=== PATIENT | male | born 1985 | race African-American/Black ===

== ENCOUNTER 2017-09-10 05:55 | Emergency (ER) | payer SELFPAY ==
[2017-09-10 06:02] VITALS: BP 133/87; PULSE 75; TEMP 98.1; BMI 18.4
--- NOTE | 2017-09-10 06:35 | PDOC ---
History of Present Illness - General Chief Complaint: Cold Symptoms Stated Complaint: COUGH & BODY ACHES Time Seen by Provider: 09/10/17 06:12 - History of Present Illness Initial Comments: This 32-year-old man presents with a 2-3 week history of runny nose/sore throat/ subjective fever and chills, followed by cough productive of green sputum. Patient denies shortness of breath or wheezing. Over the last 24 hours he has had some nausea and scant vomiting. He also states that he has had some loose stools during the last 48 hours. Patient states that "everyone" at home has similar infectious symptoms. No one has been diagnosed with influenza or has had any antiviral treatments. Patient denies using any [id number] medications for his symptoms. No recent travel. No significant past medical history and patient has not seen a doctor in several years although he has 1 in [facility]. Patient admits to tobacco smoking for the last year although he has stopped during the current illness ( for approximately 2 weeks) Past History - Past Medical History Allergies/Adverse Reactions: Allergies Allergy/AdvReac Type Severity Reaction Status Date / Time No Known Allergies Allergy Unverified 09/10/17 06:00 Home Medications: Ambulatory Orders Amoxicillin - [Amoxicillin 500mg Capsule -] 500 mg PO TID #21 capsule 09/10/17 COPD: No - Suicide/Smoking/Psychosocial Hx Smoking History: Former smoker Have you smoked in the past 12 months: Yes Information on smoking cessation initiated: Yes 'Breaking Loose' booklet given: 09/10/17 Review of Systems - Review of Systems Able to Perform ROS?: Yes Comments:: 12 point review of systems is negative except for what is noted in the history of present illness *Physical Exam - Vital Signs Last Vital Signs Temp Pulse Resp BP Pulse Ox 98.1 F 75 16 133/87 99 09/10/17 06:00 09/10/17 06:00 09/10/17 06:00 09/10/17 06:00 09/10/17 06:00 - Physical Exam Comments: GENERAL: Adult male, alert and oriented 3, in no respiratory distress HEAD: Normal with no signs of trauma. EYES: PERRLA, EOMI, sclera anicteric, conjunctiva clear. ENT: Ears normal, nares patent, oropharynx mildly erythematous without exudates. Moist mucous membranes. No facial tenderness NECK: Normal range of motion, supple without lymphadenopathy, JVD, or masses. LUNGS: Breath sounds equal, clear to auscultation bilaterally. No wheezes, and no crackles. HEART:Regular rate and rhythm, normal S1 and S2 without murmur, rub or gallop. ABDOMEN:.normal bowel sounds No guarding,tenderness or rebound.No masses No distention. EXTREMITIES: Normal range of motion, no edema. No clubbing or cyanosis. No erythema, or tenderness. NEUROLOGICAL: Cranial nerves II through XII grossly intact. Normal speech. No focal neurological deficits. MUSCULOSKELETAL: Back non-tender to palpation, no CVA tenderness SKIN: Warm, Dry, normal turgor, no rashes or lesions noted. Progress Note - Progress Note Progress Note: This otherwise healthy 32-year-old man, former smoker (quit 2 weeks ago) presents with a few week history of symptoms consistent with viral syndrome but cough productive of green sputum over this time. He has not measured fever or had wheezing/shortness of breath during any time in the current illness. Although he has had some nausea/vomiting/diarrhea over the last few days, it appears that most of his symptoms are improving except for his productive cough. Exam as noted. Clinical presentation most consistent with viral syndrome and secondary acute bacterial bronchitis in a smoker. No clear history of antecedent sinusitis. Since the productive cough has been persistent for a few weeks, antibiotic therapy warranted. Patient was started on amoxicillin 500 mg and a prescription for amoxicillin 500 mg 3 times a day for one week history of sent was pharmacy. Meanwhile, the patient should make sure that he drinks plenty of fluids, avoid complex solid foods until his gastrointestinal issues clear and consider using a vaporizer in his home or bedroom at night. He was strongly advised that the patient follow-up with his general doctor within the next week. The patient expressed interest in having a full workup including laboratory evaluation and this is best done in the outpatient setting. He should return to ER if he experiences respiratory distress/wheezing /shortness of breath or persistent high fever *DC/Admit/Observation/Transfer Diagnosis at time of Disposition: Acute bronchitis Qualifiers: Bronchitis organism: unspecified organism Qualified Code(s): J20.9 - Acute bronchitis, unspecified - Discharge Dispostion Disposition: HOME Condition at time of disposition: Stable - Prescriptions Prescriptions: Amoxicillin - [Amoxicillin 500mg Capsule -] 500 mg PO TID #21 capsule - Referrals - Patient Instructions Printed Discharge Instructions: Acute Bronchitis Additional Instructions: Continue to drink plenty of fluids; rest Avoid solid diet, especially spicy or high fat foods until nausea is Consider using vaporizer in your room at night Amoxicillin 500 mg 3 times a day for 1 week Call your general doctor on Tuesday,September 12 to arrange follow-up within 2-3 days Return to ER if you have persistent high fever, difficulty breathing, wheezing - Post Discharge Activity
[2017-09-10] MEDS ORDERED: AMOXICILLIN 500 MG CAPSULE (FP) PO ONE (06:36)
[2017-09-10] MEDS ORDERED: AMOXICILLIN 250 MG CAPSULE ONE (06:39)
== END 2017-09-10 06:44 | disposition home or self-care (01) ==
LOC: FER 05:55
CPT/HCPCS: 99281-25

== ENCOUNTER 2019-01-12 08:09 | Emergency (ER) | payer OTHER | END 2019-01-12 09:34 | disposition home or self-care (01) | LOC: FER 08:09 ==

== ENCOUNTER 2020-09-24 08:15 | Emergency (ER) | payer OTHER ==
[2020-09-24 08:30] VITALS: BP 130/82; PULSE 69; TEMP 98.7; BMI 20.3
[2020-09-24] MEDS ORDERED: IBUPROFEN 600 MG TABLET (FP) PO ONE ×2 (08:34→08:37)
== END 2020-09-24 08:50 | disposition home or self-care (01) ==
LOC: FER 08:15
DX: S43.402A Unspecified sprain of left shoulder joint, initial encounter (principal); S70.02XA Contusion of left hip, initial encounter; S39.012A Strain of muscle, fascia and tendon of lower back, initial encounter
CPT/HCPCS: 99283-25

== ENCOUNTER 2022-02-17 09:33 | Emergency (ER) | payer OTHER ==
[2022-02-17 09:46] VITALS: BP 119/89; PULSE 69; TEMP 98.1; BMI 18.4
[2022-02-17] MEDS ORDERED: IBUPROFEN 400 MG TABLET (FP) PO ONE ×2 (09:46→09:51)
== END 2022-02-17 11:12 | disposition home or self-care (01) ==
LOC: FER 09:33
DX: S43.91XA Sprain of unspecified parts of right shoulder girdle, initial encounter (principal); Y99.8 Other external cause status
CPT/HCPCS: 72050-TC-FY; 73030-TC-RT-FY; 99284-25